=== PATIENT | female | born 1990 | race Asian ===

== ENCOUNTER 2020-02-08 10:09 | Inpatient (IN) | payer OTHER ==
[~2020-02-08] VITALS: Ht 172.7 cm; Wt 77.3 kg
[2020-02-08 10:30] LABS: BASOPHILS ABSOLUTE AUTO 0.03 K/mm3 (0.00-0.23); BASOPHILS PERCENT AUTO 0 % (0-2); EOSINOPHILS PERCENT AUTO 0 % (0-6); Hematocrit 47.4 % (33.0-51.0); Hemoglobin 15.5 g/dL (11.5-16.0); IMMATURE GRAN ABSOLUTE AUTO 0.08 K/mm3 (0.00-0.10); IMMATURE GRAN PERCENT AUTO 1 % (0-1); LYMPHOCYTES PERCENT AUTO 6 % (21-46); MONOCYTES ABSOLUTE AUTO 1.14 K/mm3 (0.16-1.47); MONOCYTES PERCENT AUTO 7 % (4-13); Mean Corpuscular HGB 27.7 pg (26.0-34.0); Mean Corpuscular HGB Conc 32.7 g/dL (31.5-36.5); Mean Corpuscular Volume 85 fL (80-100); Mean Platelet Volume 11.8 fL (9.1-12.4); NEUTROPHILS ABSOLUTE AUTO 13.25 K/mm3 (1.96-9.15); NEUTROPHILS PERCENT AUTO 86 % (41-73); Platelet Count 325 K/mm3 (150-400); RDW Coefficient Variation 14.4 % (11.7-14.2); RDW Standard Deviation 43.8 fL (35.1-46.3); Red Blood Cell Count 5.59 M/mm3 (3.80-5.20)
[2020-02-08 10:33] LABS: Base Excess Venous -25.5 mmol/L; Bicarbonate Venous 8.7 mmol/L (24.0-30.0); PCO2 Venous 20.1 mmHg (38-42); PO2 Venous 85.2 mmHg (38-42)
[2020-02-08 10:34] LABS: pH Blood Venous 7.03 (7.34-7.37)
[2020-02-08 10:54] LABS: Alanine Aminotransfer (ALT/SGP 40 U/L (12-78); Albumin, Blood 3.7 g/dL (3.4-5.0); Albumin/Globulin Ratio 0.9 (0.8-1.8); Alk Phos 203 U/L (50-136); Aspartate Aminotrans (AST/SGOT 29 U/L (12-37); Bilirubin, Total 0.7 mg/dL (0.1-1.0); Blood Urea Nitrogen 90 mg/dL (8-24); Bun/Creatinine Ratio 32.4 (12.0-20.0); CPK Creatine Kinase 619 U/L (26-193); Calcium, Blood 11.4 mg/dL (8.5-10.1); Chloride, Blood 98 mmol/L (98-108); Creatinine, Blood 2.78 mg/dL (0.40-1.00); Ethanol (Alcohol), Blood, Med <3 mg/dL; Globulin, Blood 4.3 g/dL (2.2-4.0); Glomerular Filtration Rate 16 (60-); Potassium, Blood 5.5 mmol/L (3.5-5.5); Salicylate 3.9 mg/dL (2.8-20.0); Sodium, Blood 127 mmol/L (136-145)
[2020-02-08 10:55] LABS: Creatine Kinase MB 11.3 ng/mL (0.0-3.6); Creatine Kinase MB Index 1.8 (0.0-4.0)
[2020-02-08 10:57] LABS: Acetaminophen, Random <2.0 ug/mL (10.0-30.0); Anion Gap 22 mmol/L (6-16); CO2, Blood 7 mmol/L (21-32); Glucose, Blood 1228 mg/dL (70-99)
[2020-02-08 11:05] LABS: Source, Urine Clean Catch
[2020-02-08 11:14] LABS: Bilirubin, Urine Neg (Neg); Blood, Urine 5+ (Neg); Glucose Qualitative, Urine 4+ (Neg); Ketones, Urine 3+ (Neg); Leukocyte Esterase, Urine Neg (Neg); Nitrite, Urine Neg (Neg); Protein, Urine 2+ (Neg); Urobilinogen, Urine NORM (Normal)
[2020-02-08 11:27] LABS: Appearance, Urine Clear (Clear); Color, Urine Yellow (P-Yellow)
[2020-02-08 11:30] LABS: Squamous Epithelial Cells Few /hpf (Few)
[2020-02-08 11:31] LABS: Bacteria Few /hpf
[2020-02-08 11:32] LABS: Amorphous Mod (0-Heavy)
[2020-02-08 11:35] LABS: U Amphetamine Screen Not Detected; U Barbituate Screen Not Detected; U Benzodiazapine Screen Not Detected; U Buprenorphine Screen Not Detected; U Cannabinoids Screen Not Detected; U Cocaine Screen Not Detected; U Methadone Screen Not Detected; U Methamphetamine Screen Not Detected; U Opiates Screen Not Detected; U Oxycodone Screen Not Detected; U Phencyclidine Screen Not Detected; U Propoxyphene Screen Not Detected
[2020-02-08 14:46] LABS: Glucose, Blood 912 mg/dL (70-99)
[2020-02-08 15:41] LABS: Bun/Creatinine Ratio 37.3 (12.0-20.0); Calcium, Blood 10.3 mg/dL (8.5-10.1); Creatinine, Blood 2.04 mg/dL (0.40-1.00); Potassium, Blood 3.6 mmol/L (3.5-5.5)
[2020-02-08 19:39] LABS: Bun/Creatinine Ratio 41.1 (12.0-20.0); Calcium, Blood 10.2 mg/dL (8.5-10.1); Creatinine, Blood 1.68 mg/dL (0.40-1.00); Potassium, Blood 3.6 mmol/L (3.5-5.5)
--- NOTE | 2020-02-08 22:23 | NUR ---
ASSUMED PT CARE AT 2114 PT RESPONDS ONLY TO PAIN. OPENS EYES AND ABLE TO TRACK; HOWEVER, QUICKLY FALLS BACK TO SLEEP. UNSURE IF PT SPEAKS [place] SHE ISN'T ANSWERING ANY QUESTIONS. NONVERBAL. JUST MOANS AND GRIMACES WHEN TOUCHED; MAINLY NOTED WHEN REPOSITIONED, UPON PALPATION OF ABDOMEN, AND WHEN LEFT KNEE IS TOUCHED. NO SWELLING NOTED TO LEFT KNEE; HOWEVER, PT HAS BILATERAL KNEE ABRASIONS, AND MULTIPLE SCARS/BRUISING NOTED TO BLE. PT NOTED TO HAVE GREEN DISCHARGE TO LEFT EYE; CLEANSED WITH A WARM WASH CLOTH. SHE ALSO HAD NOTED SALIVA FOAMING AT HER MOUTH; ORAL CARE PERFORMED WITH POOR ORAL HYGIENE NOTED. LUNG SOUNDS ARE CLEAR T/O WITH DIMINISHED SOUNDS TO RLL. SINUS TACHYCARDIA NOTED WITH HR 110-120S; BP'S STABLE, SEE FLOWSHEET. LOW GRADE TEMP AT 99.3. BOWEL TONES HYPOACTIVE. CHAVEZ IS PATENT AND DRAINING CLOUDY, YELLOW URINE TO GRAVITY. INSULING GTT INFUSING AT 3 UNITS/HR UPON ASSUMPTION OF CARE, BLOOD SUGAR CHECKED AND INCREASED FROM 305 TO 316; THEREFORE, INCREASED INSULIN GTT TO 5 UNITS/HR. D5 1/2 NS WITH 20MEQ OF POTASSIUM INFUSING AT 150MLS/HR. WILL CONTINUE TO MONITOR CBG AND TITRATE INSULIN TO EFFECT.
[2020-02-08 23:11] LABS: Bun/Creatinine Ratio 42.9 (12.0-20.0); Creatinine, Blood 1.4 mg/dL (0.40-1.00); Potassium, Blood 3.7 mmol/L (3.5-5.5)
[2020-02-09 03:29] LABS: BASOPHILS ABSOLUTE AUTO 0.01 K/mm3 (0.00-0.23); BASOPHILS PERCENT AUTO 0 % (0-2); EOSINOPHILS ABSOLUTE AUTO 0.01 K/mm3 (0.00-0.68); EOSINOPHILS PERCENT AUTO 0 % (0-6); Hematocrit 34.6 % (33.0-51.0); Hemoglobin 12.2 g/dL (11.5-16.0); IMMATURE GRAN ABSOLUTE AUTO 0.03 K/mm3 (0.00-0.10); IMMATURE GRAN PERCENT AUTO 0 % (0-1); LYMPHOCYTES ABSOLUTE AUTO 1.13 K/mm3 (0.84-5.20); LYMPHOCYTES PERCENT AUTO 11 % (21-46); MONOCYTES ABSOLUTE AUTO 1.09 K/mm3 (0.16-1.47); MONOCYTES PERCENT AUTO 11 % (4-13); Mean Corpuscular HGB 27.7 pg (26.0-34.0); Mean Corpuscular HGB Conc 35.3 g/dL (31.5-36.5); Mean Corpuscular Volume 79 fL (80-100); Mean Platelet Volume 11.1 fL (9.1-12.4); NEUTROPHILS ABSOLUTE AUTO 7.79 K/mm3 (1.96-9.15); NEUTROPHILS PERCENT AUTO 78 % (41-73); Platelet Count 204 K/mm3 (150-400); RDW Coefficient Variation 13.3 % (11.7-14.2); RDW Standard Deviation 37.6 fL (35.1-46.3); White Blood Cell Count 10.06 K/mm3 (4.00-11.30)
[2020-02-09 03:46] LABS: Magnesium, Blood 2.4 mg/dL (1.6-2.4)
--- NOTE | 2020-02-09 06:06 | NUR ---
END OF SHIFT SUMMARY PT MORE ALERT. ABLE TO TELL ME HER NAME (HOPE). DOESN'T RECALL WHAT CITY SHE IS IN. KNOWS THE YEAR. ASKED IF SHE TAKES INSULIN ON A REGULAR BASIS DUE TO DIABETES. PT STATES NO, SHE DOESN'T HAVE DIABETES; THEREFORE, THIS EPISODE MAY BE NEW ONSET. ATTEMPTED TO ASK PT REGARDING HER LIVING SITUATION AND THE NAME OF THE MAN SHE IS LIVING WITH; HOWEVER, SHE DID NOT RESPOND. INSULIN GTT TITRATED TO EFFECT T/O SHIFT; CURRENTLY AT 4 UNITS/HR. D5 1/2 NS WITH 20MEQ OF POTASSIUM INFUSING AT 150ML/HR. CHAVEZ CATHETER IS PATENT AND DRAINING CLOUDY, YELLOW URINE TO GRAVITY. CALL LIGHT WITHIN REACH; WILL CONTINUE TO MONITOR UNTIL REPORT IS HANDED OFF TO ONCOMING RN.
[2020-02-09 08:43] LABS: Bun/Creatinine Ratio 46.1 (12.0-20.0); Calcium, Blood 9.6 mg/dL (8.5-10.1); Creatinine, Blood 0.89 mg/dL (0.40-1.00); Potassium, Blood 3.2 mmol/L (3.5-5.5)
--- NOTE | 2020-02-09 10:10 | NUR ---
Assumed care of pt at 0700. Bedside report received from Rashaun HUERTA. Pt responsive to painful stimulus. SpO2 90% or greater with room air. SR per monitor. BP stable. Pt receiving IV insulin at 5 units per hour, initially. Call placed to Dr Mace to notify that pt has not had recent BMP. BMP obtained and new orders entered by provider regarding potassium. Dr Mace in unit to see pt and states plan to keep patient on insulin drip and D5 1/2 NS with KCl at this time. Currently insulin is at 1 unit per order. CBG being checked every hour.
[2020-02-09 12:51] LABS: Anion Gap 8 mmol/L (6-16); Blood Urea Nitrogen 35 mg/dL (8-24); Bun/Creatinine Ratio 42.9 (12.0-20.0); CO2, Blood 17 mmol/L (21-32); Calcium, Blood 9.2 mg/dL (8.5-10.1); Chloride, Blood 125 mmol/L (98-108); Creatinine, Blood 0.82 mg/dL (0.40-1.00); Glomerular Filtration Rate >60 (60-); Glucose, Blood 270 mg/dL (70-99); Potassium, Blood 3.6 mmol/L (3.5-5.5); Sodium, Blood 150 mmol/L (136-145)
--- NOTE | 2020-02-09 16:28 | NUR ---
Pt remains very lethargic at this time. Opens eyes to verbal stimulus and answers simple questions before falling back asleep. Pt states name is "Akua Miller". When asked if this is her legal name, she states "yes". When asked her date of , pt states "1990". When asked if she is from [place], pt states "no". This RN asked if pt has any identification and she stated "yes, in my wallet in my pants". This RN could not find a wallet in the patient's pants. Pt has had purulent drainage from both eyes, left worse than right. Pt has also been found with mucous/purulent secretions from mouth. Unclear source. Does not resemble emesis. Updated Dr Mace. New orders given.
[2020-02-09 16:45] LABS: Anion Gap 8 mmol/L (6-16); Blood Urea Nitrogen 29 mg/dL (8-24); Bun/Creatinine Ratio 38.2 (12.0-20.0); CO2, Blood 18 mmol/L (21-32); Chloride, Blood 125 mmol/L (98-108); Creatinine, Blood 0.76 mg/dL (0.40-1.00); Glomerular Filtration Rate >60 (60-); Glucose, Blood 155 mg/dL (70-99); Potassium, Blood 3.6 mmol/L (3.5-5.5); Sodium, Blood 151 mmol/L (136-145)
--- NOTE | 2020-02-09 17:15 | NUR ---
ATTEMPT TO ASSESS LIVING SITUATION / HEALTH HISTORY Pt remains lethargic. Bedbath given to patient, pt able to assist with repositioning. When asked if she has any health history, pt states "No". When asked if pt takes any medications, she states "Estrogen". This RN inquired if patient was taking this for control, pt states "No". When asked why she takes it, patient does not provide an answer. This RN asked patient how long she has been in [place], patient states "I don't know". When asked if it has been weeks, months, or years, pt is unable to provide an answer. This RN inquired where patient lived before [place], pt states "[place]". When asked if she has lived anywhere else in [place], patient states "No". When asked if she has lived anywhere between [place] and [place], patient states "No". Asked if pt has any family and she states "I don't think so". Asked if patient has had a different name, patient states "No". Pt has a chain-link bracelet tattoo to left wrist. When asked if patient got this tattoo in a tattoo shop, patient said "yes". When asked the name of the artist, pt states "I don't remember". When asked the meaning of the tattoo, patient stated "Chains that bind". When asked if patient got this tattoo with friends, she stated "yes". Pt still remains lethargic and struggles to answer open-ended questions. Will reassess when pt is more alert.
--- NOTE | 2020-02-09 18:21 | NUR ---
SUMMARY Pt lethargic. Responds to verbal stimulus and stays awake for short periods of time, often less than one minute. Oriented to self and place. Answers questions with 1-3 word answers. Often mumbles. Follows directions. Verbalizes needs. Pleasant and cooperative with care. NPO due to lethargy. Pt on room air. SpO2 90% or greater. SR per monitor, BP stable. Remains on insulin drip at 1 unit per hour. Drip titrated up and down many times due to labile blood sugar. Chung catheter in place draining clear, yellow urine. Will continue to monitor until care handoff and bedside report with oncoming RN.
--- NOTE | 2020-02-09 19:35 | NUR ---
ASSUMED PT CARE FROM DEANNA WHALEY AT 1900 PT SLEEPING; HOWEVER, EASILY AROUSABLE. ANSWERS QUESTIONS APPROPRIATELY. ALERT AND ORIENTED X4. INSULIN GTT INFUSING AT 1 UNIT/HR WITH CBG 154. D5 1/2NS WITH 20MEQ OF POTASSIUM INFUSING AT 150MLS/HR. WHEN ASKED PT REGARDING HX, SHE DENIES ANY HX, BUT STATES SHE TAKES ESTROGEN. ASKED WHAT PHARMACY SHE RECEIVES HER ESTROGEN FROM SHE STATED IN "[place] ASKED WHO SHE WAS LIVING WITH IN [place] AND SHE SAID HER PARENTS. ASKED IF HER PARENTS KNEW THAT SHE WAS HERE IN [place], SHE STATED "NO, THEY'RE ". ASKED WHEN THEY . PT DIDN'T RESPOND. ASKED IF THEY PASSED RECENTLY, SHE STATED "YES". ASKED ABOUT PRIOR SURGERIES IN WHICH PT STATED "YES". WHEN ASKED IF SHE TAKES ESTROGEN D/T REPRODUCTIVE ORGANS SHE STATED "YES". ASKED IF PT HAS SURGERY D/T SEX CHANGE AND PT STATED "YES". ASKED IF SHE IDENITIFIES FEMALE, AND PT STATED "YES". DENIES ANY PAIN AT THIS TIME. NSR WITH HR 90'S. BP'S STABLE, SEE FLOWSHEET. CHAVEZ CATHETER IS PATENT AND DRAINING CLOUDY YELLOW URINE TO GRAVITY. PT CONTINUES TO HAVE GREEN DISCHARGE FROM BILATERAL EYES, MORE IN LEFT EYE. BOTH EYES CLEANSED WITH A WARM WASH CLOTH. EYE DROPS SCHEDULED Q2. FOUL ODOR NOTED TO ORAL CAVITY. ASKED PT IF SHE WANTED TO SIT UP AND PERFORM ORAL CARE. PT STATED "NO". INFORMED THAT WE COULD DO AN ORAL SWAB INSTEAD TO CLEAN HER MOUTH SHE PROBABLY HAS A LOT OF BACTERIA BUILDING UP; PT STATED SHE WOULD BE OKAY WITH THAT. PT ABLE TO REPOSITION SELF IN BED. CALL LIGHT WITHIN REACH. WILL CONTINUE TO MONITOR BLOOD SUGAR EVERY HOUR AND TITRATE INSULIN TO EFFECT.
--- NOTE | 2020-02-09 20:28 | NUR ---
ASSUMED CARE/ASSESSMENT PT RESTING QUIELTY. OPENS EYES TO VERBAL STIMULI. SPEECH VERY QUIET AND SLOW. ANSWERS QUESTIONS APPROP THAN BACK TO SLEEP QUICKLY. ORAL CARE DONE. LUNGS CLEAR ON ROOM AIR. RESP EVEN AND NONLABORED. HEART RATE REGULAR. BP STABLE. NO EDEMA. BT+ ABD SOFT AND NONTENDER, DENIES N/V. CHAVEZ CATH PATENT DRAINING CLEAR YELLOW URINE. IV LEFT AC SALINE LOCKED, SITE CLEAR. IV RIGHT WRIST WITH D5 1/2 WITH KCL AT 150 ML/HR WITH INSULIN AT 1 UNIT/HR. SITE CLEAR.
[2020-02-09 21:36] LABS: Anion Gap 6 mmol/L (6-16); Blood Urea Nitrogen 24 mg/dL (8-24); Bun/Creatinine Ratio 33.3 (12.0-20.0); CO2, Blood 20 mmol/L (21-32); Calcium, Blood 9.1 mg/dL (8.5-10.1); Chloride, Blood 122 mmol/L (98-108); Creatinine, Blood 0.72 mg/dL (0.40-1.00); Glomerular Filtration Rate >60 (60-); Glucose, Blood 230 mg/dL (70-99); Potassium, Blood 3.4 mmol/L (3.5-5.5); Sodium, Blood 148 mmol/L (136-145)
--- NOTE | 2020-02-09 21:57 | NUR ---
CALL TO MD CALL OUT TO DR CAMERON REGARDING POTASSIUM 3.4
[2020-02-10 03:52] LABS: BASOPHILS ABSOLUTE AUTO 0.01 K/mm3 (0.00-0.23); BASOPHILS PERCENT AUTO 0 % (0-2); EOSINOPHILS ABSOLUTE AUTO 0.03 K/mm3 (0.00-0.68); EOSINOPHILS PERCENT AUTO 0 % (0-6); Hematocrit 30.1 % (33.0-51.0); Hemoglobin 10.6 g/dL (11.5-16.0); IMMATURE GRAN ABSOLUTE AUTO 0.03 K/mm3 (0.00-0.10); IMMATURE GRAN PERCENT AUTO 0 % (0-1); LYMPHOCYTES ABSOLUTE AUTO 1.95 K/mm3 (0.84-5.20); LYMPHOCYTES PERCENT AUTO 27 % (21-46); MONOCYTES ABSOLUTE AUTO 0.71 K/mm3 (0.16-1.47); MONOCYTES PERCENT AUTO 10 % (4-13); Mean Corpuscular HGB 28.3 pg (26.0-34.0); Mean Corpuscular HGB Conc 35.2 g/dL (31.5-36.5); Mean Corpuscular Volume 81 fL (80-100); Mean Platelet Volume 12.1 fL (9.1-12.4); NEUTROPHILS PERCENT AUTO 62 % (41-73); Platelet Count 155 K/mm3 (150-400); RDW Coefficient Variation 14.1 % (11.7-14.2); RDW Standard Deviation 40.8 fL (35.1-46.3); Red Blood Cell Count 3.74 M/mm3 (3.80-5.20); White Blood Cell Count 7.23 K/mm3 (4.00-11.30)
[2020-02-10 04:09] LABS: Albumin, Blood 2.1 g/dL (3.4-5.0); Anion Gap 6 mmol/L (6-16); Blood Urea Nitrogen 19 mg/dL (8-24); Bun/Creatinine Ratio 28.4 (12.0-20.0); CO2, Blood 19 mmol/L (21-32); Calcium, Blood 8.7 mg/dL (8.5-10.1); Chloride, Blood 124 mmol/L (98-108); Creatinine, Blood 0.67 mg/dL (0.40-1.00); Glomerular Filtration Rate >60 (60-); Glucose, Blood 166 mg/dL (70-99); Magnesium, Blood 1.9 mg/dL (1.6-2.4); Phosphorus, Blood 1.3 mg/dL (2.5-4.9); Potassium, Blood 3.6 mmol/L (3.5-5.5); Sodium, Blood 149 mmol/L (136-145)
[2020-02-10 04:10] LABS: Anion Gap 6 mmol/L (6-16); Blood Urea Nitrogen 18 mg/dL (8-24); Bun/Creatinine Ratio 26.1 (12.0-20.0); CO2, Blood 19 mmol/L (21-32); Calcium, Blood 8.8 mg/dL (8.5-10.1); Chloride, Blood 124 mmol/L (98-108); Creatinine, Blood 0.69 mg/dL (0.40-1.00); Glomerular Filtration Rate >60 (60-); Glucose, Blood 170 mg/dL (70-99); Potassium, Blood 3.6 mmol/L (3.5-5.5); Sodium, Blood 149 mmol/L (136-145)
--- NOTE | 2020-02-10 06:40 | NUR ---
SHIFT SUMMARY PT RESTING QUIELTY. AWAKENS EASILY TO VERBAL STIMULI. PT SPEECH SLOW. PT STATES,"I'M 30 YEARS OLD, I WAS BORN 1990". TOLD HER SHE WAS 29 YEARS OLD PT STATES,"I DON'T KNOW". PT GOES TO SLEEP QUICKLY WHEN UNDISTURBED. INSULIN GTT TITRATED UP TO 4 UNITS AND DOWN TO 2 UINTS DURING THE NIGHT TO KEEP BLOOD GLUCOSE BETWEEN 150-200. VSS. POWER GLIDE PLACED DURING THE NIGHT AND PT GIVEN KCL AND K PHOS. REPORT TO ON COMING NURSE.
--- NOTE | 2020-02-10 07:36 | NUR ---
ASSUMED CARE OF PT THIS AM. PT. NOW MORE AWAKE AND ABLE TO ANSWER QUESTIONS. ORIENTED TO LOCATION AND DATE, UNABLE TO RECALL RECENT EVENTS THAT BROUGHT HER TO THE HOSPITAL. HOME MEDS AND ALLERGIES COMPLETED ALONG WITH HEALTH HISTORY. PT. REPORTS LIVING IN A VAN OF A MAN NAMED SHASHANK, REPORTS SHE DOES HAVE FAMILY IN [place] THAT SHE IS NOT CLOSE WITH. REPORTS SHE DOES FEEL SAFE LIVING WITH SHASHANK AND PLANS TO RESIDE IN THE [place] AGAIN AFTER DISCHARGE. PT. DOES NOT KNOW WHERE HER ID IS HOWEVER REPORTS HER NAME IS "ALTAGRACIA FLYNN" WITH 1990 [employer] TO BE NOTIFIED TO ASSIST PT WITH PCP, PT REPORTS SHE PLANS ON RESIDING IN [place] AFTER DISCHARGE. PT. DENIES PAIN THIS AM. CURRENTLY ON RA. PT. REMAINS ON INSULIN GTT THIS AM AT 3U/HR. PT. HAS SCATTERED BRUSING AND SCRATCHES T/O BODY. PT. ABLE TO ASSIST WITH REPOSITIOING AND TURNING SELF IN BED. GOMEZ. PT. AFEBRILE. CHAVEZ IN PLACE DRAINING TO GRAVITY. VSS THIS AM NADN.
[2020-02-10 08:52] LABS: Anion Gap 10 mmol/L (6-16); Blood Urea Nitrogen 14 mg/dL (8-24); Bun/Creatinine Ratio 20.3 (12.0-20.0); CO2, Blood 19 mmol/L (21-32); Calcium, Blood 8.5 mg/dL (8.5-10.1); Chloride, Blood 122 mmol/L (98-108); Creatinine, Blood 0.69 mg/dL (0.40-1.00); Glomerular Filtration Rate >60 (60-); Glucose, Blood 207 mg/dL (70-99); Potassium, Blood 3.7 mmol/L (3.5-5.5); Sodium, Blood 151 mmol/L (136-145)
--- NOTE | 2020-02-10 11:11 | NUR ---
DR. NI IN TO ASSESS PT PLANS FOR PT TO TRANSITION OFF OF INSULIN GTT, ORDERS TO COME. PT. ALSO REQUESTS TO GO TO [facility] UPON DISCHARGE, WATCH CRYSTAL MOLDER WORKING WITH PT FOR PLACEMENT AND PCP.
--- NOTE | 2020-02-10 13:25 | NUR ---
PT UP TO BEDSIDE TOILET WITH STAND BY ASSIST. INSULIN GTT STOPPED AT THIS TIME. PT. TOLERATING PO INTAKE.
--- NOTE | 2020-02-10 14:37 | NUR ---
SPOT CHECK ONCE OFF INSULIN GTT, COVERED PER LSS PER DR. NI. PT. CONTINUES TO TOLERATE PO WELL. PER DR. NI STOP IV FLUIDS, ENCOURAGE PO FLUIDS AND TRANSFER PT TO MEDICAL FLOOR NO TELE.
--- NOTE | 2020-02-10 15:00 | NUR ---
REPORT TO MEDICAL FLOOR RN, AWAITING ROOM TO BE CLEANED
--- NOTE | 2020-02-10 16:20 | NUR ---
PT TRANSFERED PT TRANSFERED TO ROOM 361. PT ORIENTED TO ROOM. CALL LIGHT IN REACH. FRESH WATER SUPPLIED TO PT. PT DENIES FURTHER NEEDS AT THIS TIME. VS TAKEN. NO CHANGES FROM PRIOR RUG SCRATCHER AT THIS TIME, EXCEPT INSULIN GTT DC'ED. WILL CONTINUE TO MONITOR UNTIL TURNOVER IS COMPLETE.
--- NOTE | 2020-02-11 04:24 | NUR ---
SHIFT SUMMARY ASSUMED CARE OF PT AT 1900. PT IS A/OX4 BUT TIRED. HEART SOUNDS REGULAR, LUNG SOUNDS CLEAR. PT WAS INDEPENDENT TO BATHROOM. PT RECEIVED HER DROPS FOR HER EYES T/O THE NIGHT. PT LINE DRAWS. PT STAES NO OTHER COMPLAINTS. NO ACUTE EVENTS DURING THE NIGHT. CALL LIGHT IN REACH, BED IN LOWEST POSITION, WILL CONTINUE TO MONITOR.
[2020-02-11 04:59] LABS: Albumin, Blood 2.2 g/dL (3.4-5.0); Anion Gap 6 mmol/L (6-16); Blood Urea Nitrogen 10 mg/dL (8-24); CO2, Blood 23 mmol/L (21-32); Calcium, Blood 8.8 mg/dL (8.5-10.1); Chloride, Blood 117 mmol/L (98-108); Creatinine, Blood 0.56 mg/dL (0.40-1.00); Glomerular Filtration Rate >60 (60-); Glucose, Blood 256 mg/dL (70-99); Magnesium, Blood 1.9 mg/dL (1.6-2.4); Phosphorus, Blood 2.6 mg/dL (2.5-4.9); Potassium, Blood 3.4 mmol/L (3.5-5.5); Sodium, Blood 146 mmol/L (136-145)
[2020-02-11] MEDS ORDERED: Ciprofloxacin2.5 ML BOTHEYES (11:11)
[2020-02-11] MEDS ORDERED: SEMGLEE PE100 UNIT/1 SC (11:12)
[2020-02-11] MEDS ORDERED: HUMALOG JU100 UNIT/2 SC (16:31)
--- NOTE | 2020-02-11 17:01 | NUR ---
SHE HAS HAD A DAY WITH NO COMPLAINTS. SHE IS VERY SOFT SPOKEN AND PLEASANT. SHE HAS HAD A LOT OF DIABETIC TEACHING TODAY AND GAVE HERSELF HER INSULIN INJECTION AT LUNCHTIME. SHE WILL ALSO REPEAT THAT AT DINNER IF SHE REQUIRES IT. SWEAT CLOTHES GIVEN TO HER IN PREPARATION FOR [facility]. HER CLOTHES ARE SOILED AND WE NO LONGER HAVE A WASHING MACHINE. CBG OVER 300 AT LUNCHTIME. SHE HAS A NEW GLUCOSE MONITOR AND WAS INSTRUCTED ON IT. [employer] HAS ARRANGED FOR A [facility]N TAXI TRANSPORT TO [facility]. THEY ARE ALSO WAITING TO HEAR BACK FROM HER INSURANCE ABOUT AUTHORIZATION REGARDING IMER TERM DIABETIC SUPPLIES. SHE EATS WELL AND VOIDS WELL.
--- NOTE | 2020-02-12 04:46 | NUR ---
SHIFT SUMMARY NO ACUTE CHANGES TO REPORT THIS SHIFT. PT HAS RESTED OF AND ON T/O THE SHIFT. SHE REQUESTS ICE CHIPS A FEW TIMES T/O SHIFT, BUT OTHERWISE SHE HAS DENIED NEEDS. BG HAS REMAINED STABLE WITH HS CHECK. SHE HAS BEEN INDEPENDENT IN THE ROOM, VITALS ARE STABLE. PLAN IS FOR DC TODAY. ASSESSMENT UNCHANGED. BED IN LOWEST POSITION, CALL LIGHT WITHIN REACH.
[2020-02-12 05:28] LABS: Albumin, Blood 2.2 g/dL (3.4-5.0); Anion Gap 5 mmol/L (6-16); Blood Urea Nitrogen 9 mg/dL (8-24); Bun/Creatinine Ratio 16.8 (12.0-20.0); CO2, Blood 27 mmol/L (21-32); Calcium, Blood 8.8 mg/dL (8.5-10.1); Chloride, Blood 113 mmol/L (98-108); Creatinine, Blood 0.54 mg/dL (0.40-1.00); Glomerular Filtration Rate >60 (60-); Glucose, Blood 140 mg/dL (70-99); Phosphorus, Blood 2.8 mg/dL (2.5-4.9); Potassium, Blood 3.1 mmol/L (3.5-5.5); Sodium, Blood 145 mmol/L (136-145)
--- NOTE | 2020-02-12 17:06 | NUR ---
DISCHARGE SUMMARY: LATE ENTRY FOR 1610 PATIENT DENIED PAIN OR DISCOMFORT THROUGHOUT SHIFT. PATIENT ABLE TO DISCUSS THE EDUCATION THAT SHE HAS RECEIVED SO FAR IN THE HOSPITAL. PATIENT ABLE TO UTILIZE A SLIDING SCALE TO DETERMINE INSULIN COVERAGE. PATIENT ABLE TO USE INSULIN PENS AND GIVE HERSELF INJECTIONS CORRECTLY. PATIENT RECEPTIVE TO EDUCAITON ON DIET, MONITORING CBGS, INSULIN, AND HYPO/HYPERGLYCEMIA. PATIENT EXPRESSES WILLINGNESS TO FOLLOW UP WITH A PCP AT [facility] AND TO RECEIVE FURTHER EDUCATION ON DIABETES. JEANNIE YEAGER SET UP DISCHARGE NEEDS WITH THE PATIENT. DISCHARGE INSTRUCTIONS AND EDUCATION PROVIDED BY HER AND PRIMARY RN. ALL QUESTIONS AND CONCERNS ADDRESSED. PATIENT PROVIDED WITH MEDICATION VOUCHER. PATIENT DISCHARGED WITH GLUCOMETER AND DISCHARGE INSTRUCTIONS/EDUCATIONS. ALL QUESTIONS AND CONCERNS ADDRESSED. PATIENT EXPRESSED GRATITUDE FOR THE CARE THAT SHE RECEIVED HERE. PATIENT DISCHARGED WITH SPECIALTY SALES CONSULTANT AT 16:10 TO MEET TAXI AT [facility]. PATIENT STABLE AT TIME OF DISCHARGE.
== END 2020-02-12 16:22 | disposition home or self-care (01) | DRG 637 ==
LOC: ER 10:09 → ICUE 12:52 → EDBD 12:52 → ERHOLD 12:52 → ICUE 21:21 → MEDS 02-10 16:03
PROVIDERS: Emergency Medicine; Internal Medicine; Nurse Practitioner Acute Care; ADMIT Internal Medicine
DX: E10.11 Type 1 diabetes mellitus with ketoacidosis with coma (principal); G93.41 Metabolic encephalopathy; E87.0 Hyperosmolality and hypernatremia; E87.1 Hypo-osmolality and hyponatremia; M62.82 Rhabdomyolysis; N17.9 Acute kidney failure, unspecified; R65.10 Systemic inflammatory response syndrome (SIRS) of non-infectious origin without acute organ dysfunction; E86.0 Dehydration; E87.6 Hypokalemia; M25.562 Pain in left knee; T68.XXXA Hypothermia, initial encounter; Z59.0 Homelessness; E83.39 Other disorders of phosphorus metabolism
CPT/HCPCS: 36415; 51702; 70450; 71045; 73562-LT; 74176; 80048; 80053; 80069; 81001; 82550; 82553; 82803; 82947; 83036; 83690; 83735; 84100; 85025; 86341; 93005; 93010; 96361-59; 96374-59; 96375-59; 99285-25; A9270; A9270-GY; C1751; G0480; J1644; J1815; J2310; J3480; J7030; J7060; J7120

== ENCOUNTER → 2020-03-24 | Outpatient (CLI) | payer OTHER ==
[~2020-03-24] MED LIST: Ciprofloxacin2.5 ML BOTHEYES; HUMALOG JU100 UNIT/2 SC; SEMGLEE PE100 UNIT/1 SC
[2020-03-24 19:50] LABS: BASOPHILS ABSOLUTE AUTO 0.03 K/mm3 (0.00-0.23); BASOPHILS PERCENT AUTO 0 % (0-2); EOSINOPHILS ABSOLUTE AUTO 0.05 K/mm3 (0.00-0.68); EOSINOPHILS PERCENT AUTO 1 % (0-6); Hematocrit 39.7 % (33.0-51.0); Hemoglobin 12.6 g/dL (11.5-16.0); IMMATURE GRAN ABSOLUTE AUTO 0.02 K/mm3 (0.00-0.10); IMMATURE GRAN PERCENT AUTO 0 % (0-1); LYMPHOCYTES ABSOLUTE AUTO 1.95 K/mm3 (0.84-5.20); LYMPHOCYTES PERCENT AUTO 22 % (21-46); MONOCYTES ABSOLUTE AUTO 0.46 K/mm3 (0.16-1.47); MONOCYTES PERCENT AUTO 5 % (4-13); Mean Corpuscular HGB 27.8 pg (26.0-34.0); Mean Corpuscular HGB Conc 31.7 g/dL (31.5-36.5); Mean Corpuscular Volume 88 fL (80-100); Mean Platelet Volume 10.9 fL (9.1-12.4); NEUTROPHILS ABSOLUTE AUTO 6.38 K/mm3 (1.96-9.15); NEUTROPHILS PERCENT AUTO 72 % (41-73); Platelet Count 299 K/mm3 (150-400); RDW Coefficient Variation 13.8 % (11.7-14.2); RDW Standard Deviation 44.4 fL (35.1-46.3); Red Blood Cell Count 4.53 M/mm3 (3.80-5.20); White Blood Cell Count 8.89 K/mm3 (4.00-11.30)
[2020-03-24 20:41] LABS: Alanine Aminotransfer (ALT/SGP 24 U/L (12-78); Albumin, Blood 3.8 g/dL (3.4-5.0); Albumin/Globulin Ratio 0.9 (0.8-1.8); Alk Phos 106 U/L (50-136); Anion Gap 7 mmol/L (6-16); Aspartate Aminotrans (AST/SGOT 20 U/L (12-37); Bilirubin, Total 0.2 mg/dL (0.1-1.0); Blood Urea Nitrogen 18 mg/dL (8-24); Bun/Creatinine Ratio 28.5 (12.0-20.0); CO2, Blood 26 mmol/L (21-32); Calcium, Blood 9.4 mg/dL (8.5-10.1); Chloride, Blood 105 mmol/L (98-108); Cholesterol 210 mg/dL (50-200); Creatinine, Blood 0.63 mg/dL (0.40-1.00); Globulin, Blood 4.1 g/dL (2.2-4.0); Glomerular Filtration Rate >60 (60-); Glucose, Blood 122 mg/dL (70-99); HDL Cholesterol 53 mg/dL (>39); LDL/HDL RATIO 2.4; Low Density Lipoprotein Chol 127 mg/dL (0-110); Potassium, Blood 3.5 mmol/L (3.5-5.5); Sodium, Blood 138 mmol/L (136-145); Total Protein, Blood 7.9 g/dL (6.4-8.2); Triglycerides 149 mg/dL (30-140); Very Low Density Lipoprot Chol 29 mg/dL (6-28)
[2020-03-26 08:10] LABS: HIV SCREEN 4TH GENERATION WRFX Non Reactive (Non Reactive)
== END | disposition home or self-care (01) ==
LOC: LAB 17:39 → LAB SHORT 17:39
PROVIDERS: Student in an Organized Health Care Education/Training Program
DX: Z00.00 Encounter for general adult medical examination without abnormal findings (principal); Z13.6 Encounter for screening for cardiovascular disorders
CPT/HCPCS: 80053; 80061; 85025; 87389

== ENCOUNTER → 2020-10-06 | Outpatient (CLI) | payer OTHER ==
[2020-10-06 19:08] LABS: Alanine Aminotransfer (ALT/SGP 84 U/L (12-78); Albumin, Blood 4.1 g/dL (3.4-5.0); Alk Phos 108 U/L (50-136); Anion Gap 7 mmol/L (6-16); Aspartate Aminotrans (AST/SGOT 33 U/L (12-37); Bilirubin, Total 0.5 mg/dL (0.1-1.0); Blood Urea Nitrogen 20 mg/dL (8-24); Bun/Creatinine Ratio 44.3 (12.0-20.0); CO2, Blood 26 mmol/L (21-32); Calcium, Blood 9.9 mg/dL (8.5-10.1); Chloride, Blood 104 mmol/L (98-108); Creatinine, Blood 0.45 mg/dL (0.40-1.00); Globulin, Blood 4.2 g/dL (2.2-4.0); Glomerular Filtration Rate >60 (60-); Glucose, Blood 118 mg/dL (70-99); Sodium, Blood 137 mmol/L (136-145); Total Protein, Blood 8.3 g/dL (6.4-8.2)
== END | disposition home or self-care (01) ==
LOC: LAB 15:10 → LAB SHORT 15:10
PROVIDERS: Nurse Practitioner
DX: E11.9 Type 2 diabetes mellitus without complications (principal)
CPT/HCPCS: 80053

== ENCOUNTER 2021-07-08 10:03 | Emergency (ER) | payer OTHER ==
[~2021-07-08] VITALS: Ht 170.2 cm; Wt 90.7 kg
[2021-07-08] MEDS ORDERED: Lantus100 UNIT/1 (10:21)
[2021-07-08] MEDS ORDERED: METF500 PO (10:22)
[2021-07-08 10:58] LABS: Hematocrit 40.2 % (33.0-51.0); Hemoglobin 13.7 g/dL (11.5-16.0); Mean Corpuscular HGB 28.1 pg (26.0-34.0); Mean Corpuscular HGB Conc 34.1 g/dL (31.5-36.5); Mean Corpuscular Volume 82 fL (80-100); Mean Platelet Volume 11.9 fL (9.1-12.4); Platelet Count 180 K/mm3 (150-400); RDW Coefficient Variation 13.6 % (11.7-14.2); RDW Standard Deviation 40.8 fL (35.1-46.3); Red Blood Cell Count 4.88 M/mm3 (3.80-5.20); White Blood Cell Count 9.19 K/mm3 (4.00-11.30)
[2021-07-08 11:21] LABS: Albumin, Blood 3.5 g/dL (3.4-5.0); Albumin/Globulin Ratio 0.7 (0.8-1.8); Bilirubin, Total 3.4 mg/dL (0.1-1.0); Bun/Creatinine Ratio 15.2 (12.0-20.0); Calcium, Blood 9.3 mg/dL (8.5-10.1); Creatinine, Blood 1.12 mg/dL (0.40-1.00); Globulin, Blood 5.1 g/dL (2.2-4.0); Magnesium, Blood 1.9 mg/dL (1.6-2.4); Potassium, Blood 3.5 mmol/L (3.5-5.5); Total Protein, Blood 8.6 g/dL (6.4-8.2)
[2021-07-08 11:44] LABS: BAND PERCENT MAN 20 % (0-8); BASOPHILS PERCENT MAN 0 % (0-2); EOSINOPHILS ABSOLUTE MAN 0.09 K/mm3 (0.00-0.68); EOSINOPHILS PERCENT MAN 1 % (0-6); LYMPHOCYTES ABSOLUTE MAN 0.36 K/mm3 (0.84-5.20); LYMPHOCYTES PERCENT MAN 4 % (21-46); MONOCYTES ABSOLUTE MAN 0.36 K/mm3 (0.16-1.47); MONOCYTES PERCENT MAN 4 % (4-13); NEUTROPHILS ABSOLUTE MAN 8.36 K/mm3 (1.96-9.15); SEG NEUTROPHILS PERCENT MAN 71 % (41-73); TOTAL CELLS COUNTED 100
[2021-07-08 12:13] LABS: Source, Urine Clean Catch
[2021-07-08 12:18] LABS: Appearance, Urine Hazy (Clear); Blood, Urine 5+ (Neg); Color, Urine Yellow (P-Yellow); Glucose Qualitative, Urine 1+ (Neg); Ketones, Urine 2+ (Neg); Leukocyte Esterase, Urine 1+ (Neg); Nitrite, Urine Neg (Neg); Protein, Urine 3+ (Neg); Urobilinogen, Urine 2+ (Normal)
[2021-07-08 12:33] LABS: Bilirubin, Urine 2+ (Neg)
[2021-07-08 12:36] LABS: Amorphous Light (0-Heavy); Bacteria Many /hpf; Squamous Epithelial Cells Few /hpf (Few)
[2021-07-08 12:37] LABS: Granular Casts 25-50 /lpf (0)
[2021-07-08 12:52] LABS: Influenza A, PCR NEGATIVE (NEGATIVE); Influenza B, PCR NEGATIVE (NEGATIVE); Resp Syncytial Virus, PCR NEGATIVE (NEGATIVE); SARS-Cov-2 (COVID-19) PCR, MMC NEGATIVE (NEGATIVE)
[2021-07-08] MEDS ORDERED: ONDA4ODT MM (15:33)
[2021-07-08 15:49] LABS: International Normalized Ratio 1.04; Prothrombin Time Results 10.9 Sec (9.7-11.5)
[2021-07-09 08:11] LABS: HBSAG SCREEN Negative (Negative); HCV AB <0.1 (0.0-0.9); HEP A AB, IGM Negative (Negative); HEP B CORE AB, IGM Negative (Negative)
== END 2021-07-08 15:35 | disposition home or self-care (01) ==
LOC: ER 10:03
PROVIDERS: Emergency Medicine; Physician Assistant
DX: R11.2 Nausea with vomiting, unspecified (principal); R19.7 Diarrhea, unspecified; E11.9 Type 2 diabetes mellitus without complications; Z20.822 Contact with and (suspected) exposure to COVID-19
CPT/HCPCS: 0241U; 36415; 76705; 80053; 80074; 81001; 83690; 83735; 85025; 85610; 85730; 87086; 99284-25